=== PATIENT | male | born 1945 | race Caucasian/White ===

== ENCOUNTER → 2018-07-01 | Outpatient (CLI) | payer MEDICARE | END | disposition home or self-care (01) | LOC: ROC 06-29 10:05 | PROVIDERS: ATTEND Radiology Radiation Oncology | DX: C61 Malignant neoplasm of prostate (principal) | CPT/HCPCS: G0463 ==

== ENCOUNTER → 2018-07-12 | Outpatient (CLI) | payer MEDICARE ==
[~2018-07-12] MED LIST: FENTANYL PF 100 MCG/2ML IVPush ONE; LIDOCAINE 1%, 10ML SQ ONE; LIDOCAINE 1%, 20ML SQ ONE; MIDAZOLAM 1 MG/ML, 5ML IVPush ONE
== END | disposition home or self-care (01) ==
LOC: ROC 07:19
PROVIDERS: ATTEND Radiology Radiation Oncology
DX: C61 Malignant neoplasm of prostate (principal)
CPT/HCPCS: 55876; 76942; 77332; 99156; A4648; J2250; J3010; J3490

== ENCOUNTER → 2018-07-18 | Outpatient (CLI) | payer MEDICARE | END | disposition home or self-care (01) | LOC: CFH 08:50 | PROVIDERS: ATTEND Radiology Radiation Oncology | DX: N40.0 Benign prostatic hyperplasia without lower urinary tract symptoms (principal); C61 Malignant neoplasm of prostate | CPT/HCPCS: 72195 ==

== ENCOUNTER → 2019-02-02 | Outpatient (CLI) | payer MEDICARE | END | disposition home or self-care (01) | LOC: ROC 06:48 | PROVIDERS: ATTEND Radiology Radiation Oncology | DX: Z08 Encounter for follow-up examination after completed treatment for malignant neoplasm (principal); N13.9 Obstructive and reflux uropathy, unspecified; N41.9 Inflammatory disease of prostate, unspecified; Z85.46 Personal history of malignant neoplasm of prostate | CPT/HCPCS: G0463 ==